=== PATIENT | male | born 1940 | race Caucasian/White ===

== ENCOUNTER → 2017-07-03 | Outpatient (CLI) | payer OTHER ==
[~2017-07-03] MED LIST: ADVAIR 250-501 EACH INH; ALBUTEROL SULF8.5 GM IH; ALPRAZOLAM1 MG PO; ATROVENT HFA12.9 GM INH; FLOMAX0.4 MG PO; GLUCOTROL5 MG PO; K DUR10 MEQ PO; LASIX20 MG PO; LASIX40 MG PO; LISINOPRIL10 MG PO; LISINOPRIL2.5 MG PO; MELATONIN 5 MG1 EAC1 PO; METOLAZONE5 MG PO; METOPROLOL SUCC25 MG PO; METOPROLOL TART25 MG PO; MIRTAZAPINE15 MG PO; POTASSIUM CHLO20 ME1 PO; PRAVASTATIN SOD40 MG PO; ROPINIROLE HCL1 MG PO; TERAZOSIN HCL5 MG PO; TOPROL XL25 MG PO; ULTRAM50 MG PO; VENTOLIN HFA18 GM IH
[2017-07-03 16:38] LABS: INR 1.15; PROTHROMBIN TIME 15.3 seconds (11.9-14.5)
== END ==
LOC: NPA 13:30
PROVIDERS: ATTEND Internal Medicine Pulmonary Disease
DX: Z02.89 Encounter for other administrative examinations (principal)
CPT/HCPCS: 36415; 85610